=== PATIENT | male | born 1980 | race Two or more races ===

== ENCOUNTER 2020-10-30 08:06 | Outpatient (CLI) | payer OTHER | END 2020-10-30 08:07 | disposition home or self-care (01) | LOC: PPH VACUNA 08:06 | DX: Z23 Encounter for immunization (principal) ==

== ENCOUNTER 2020-11-20 | Outpatient (CLI) | payer OTHER | END 2020-11-20 12:59 | disposition home or self-care (01) | LOC: PPH VACUNA | DX: Z23 Encounter for immunization (principal) ==

== ENCOUNTER 2021-06-16 08:00 | Outpatient (CLI) | payer OTHER | END 2021-06-16 08:30 | disposition home or self-care (01) | LOC: PPH VACUNA 08:00 | PROVIDERS: ATTEND Emergency Medicine Pediatric Emergency Medicine | DX: Z23 Encounter for immunization (principal) ==